=== PATIENT | female | born 1955 | race Caucasian/White ===

== ENCOUNTER 2017-12-26 21:27 | Emergency (ER) | payer OTHER ==
[2017-12-26 22:05] VITALS: BP 105/71
--- NOTE | 2017-12-26 22:09 | RAD ---
INDICATION: Posterior right forearm pain after trauma TECHNIQUE: 2 views of the right forearm were obtained. FINDINGS: The bones are normal alignment. Joint spaces appear maintained. No fracture is seen. IMPRESSION: No radiographic evidence of acute fracture or dislocation. If the patient's symptoms persist, follow-up imaging is recommended.
--- NOTE | 2017-12-26 22:47 | UC ---
Laceration HPI - HPI Summary HPI Summary: 62 y/o male presents to the urgent care c/o laceration to back of her head and RT forearm pain and Left elbow pain s/p falling backwards while moving some furniture around 2100 tonight. pt reports she was helping her move some heavy furniture and she slipped and fell backwards and hit her head against another furniture. Bleeding stopped after 15min of pressure. Pain is 2/ 10. She also has mild bruising in her forearm and left elbow. but can move them w/o any difficulty. Pt denies LOC, ALMEIDA, dizziness, abdominal pain SOB, chest pain, N/V/D . - History Of Current Complaint Chief Complaint: EDExtremityUpper Stated Complaint: HEAD LAC,WRIST INJURY Time Seen by Provider: 12/26/17 22:35 Hx Obtained From: Patient Laceration Location: Head - RT lateral side of scalp w/ laceration s/p fall Mechanism Of Injury: Sharp Trauma Onset/Duration: Lasting Hours Pain Intensity: 2 Pain Scale Used: 0-10 Numeric Aggravating Factors: Other: - touch - Allergies/Home Medications Allergies/Adverse Reactions: Allergies Allergy/AdvReac Type Severity Reaction Status Date / Time MS Bacitracin Allergy Rash Verified 12/26/17 22:06 [From Neosporin] MS Neomycin [From Neosporin] Allergy Rash Verified 12/26/17 22:06 MS Polymyxin B Allergy Rash Verified 12/26/17 22:06 [From Neosporin] Home Medications: Home Medications DULoxetine DR CAP* [Cymbalta CAP*] 30 mg PO DAILY 12/26/17 [History Confirmed ] PMH/Surg Hx/FS Hx/Imm Hx Previously Healthy: Yes Psychological History: Anxiety - Surgical History Surgical History: Yes Surgery Procedure, Year, and Place: CLOSED FRACTURE OF ARM- [facility]- 1962 - Family History Known Family History: Positive: None - Pt denies FMHX - Social History Occupation: Employed Full-time Lives: With Family Alcohol Use: Weekly Alcohol Amount: 4 to 6 drinks Substance Use Type: Excessive Caffeine Substance Use Comment - Amount & Last Used: 3+CUPS OF COFFEE PER DAY Smoking Status (MU): Never Smoked Tobacco Review of Systems Constitutional: Negative Skin: Bruising - RT fore arm and left elbow, Other - laceration of lateral side of scalp Eyes: Negative ENT: Negative Respiratory: Negative Cardiovascular: Negative Gastrointestinal: Negative Genitourinary: Negative Motor: Negative Neurovascular: Negative Musculoskeletal: Other: - RT forearm pain s/p fall Neurological: Negative Psychological: Negative Is Patient Immunocompromised?: No All Other Systems Reviewed And Are Negative: Yes Physical Exam Triage Information Reviewed: Yes Vital Signs: Initial Vital Signs Temp 97.6 F 12/26/17 21:57 Pulse 78 12/26/17 21:57 Resp 18 12/26/17 21:57 BP 105/71 12/26/17 21:57 Pulse Ox 99 12/26/17 21:57 - Additional Comments Vital Signs Reviewed: Yes General: well developed, well nourished female sitting in the examining table w/ o any apparent distress Eye Exam: Normal Eyes: Positive: Conjunctiva Clear - PERRLA, EOMI, fundi grossly normal ENT: Positive: Normal ENT inspection, Hearing grossly normal, Pharynx normal, TMs normal Neck: Positive: Supple, Nontender, No Lymphadenopathy Respiratory: Positive: Chest non-tender, Lungs clear, Normal breath sounds, No respiratory distress Cardiovascular: Positive: RRR, No Murmur, Pulses Normal, Brisk Capillary Refill Abdomen Description: Positive: Nontender, No Organomegaly, Soft. Negative: CVA Tenderness (R), CVA Tenderness (L) Bowel Sounds: Positive: Present Musculoskeletal: Positive: Strength Intact, ROM Intact, No Edema Neurological: Positive: Alert, Muscle Tone Normal Psychological Exam: Normal Skin: Positive:Lateral side of scalp w/ a superficial linear laceration about 2.0cm in size, bleeding stopped, mild tenderness on palpation, Mild swelling observed. RT forearm w/ beusing and swelling in the dorsal side, tender to palpation, FROM of RT wrist and RT elbow, pulses WNL, capillary refill brisk, sensation intact. LF elbow w/ midl bruising and swelling, FROM of LF Elbow . Mild tenderness to palpation. neurovascular intact. Laceration Repair - Laceration Repair 1 Description: Linear Laceration Size After Repair: Length (cm) - 2.0 Modified For Repair: No Type Injection: Local Anesthesia Used: 1.0% Lido - 1ml Cleansing Completed Via Routine Prep: Yes Irrigation With Pressure Irrigation Device: Yes Closure Material: Sascha - 5 Closure Method: Single Layer Suture Of: Skin, SQ Laceration Course/Dx - Course/Dx Course Of Treatment: 62 y/o male presents to the urgent care c/o laceration to back of her head and RT forearm pain and Left elbow pain s/p falling backwards while moving some furniture around 2100 tonight. pt reports she was helping her move some heavy furniture and she slipped and fell backwards and hit her head against another furniture. Bleeding stopped after 15min of pressure. Pain is 2/10. She also has mild bruising in her forearm and left elbow. but can move them w/o any difficulty. Pt denies LOC, ALMEIDA, dizziness, abdominal pain SOB, chest pain, N/V/D. Hx obtained. Pt w/ a superficial linear laceratio on the RT lateral side of scalp about 2.0cm in size, and RT fore arm and left elbow w/ contusion on examiantion. RT Forearm X-ray ordered: Impression : no evidence of Fracture or dislocation observed. LACERATION PROCEDURE NOTE: . Copious irrigation was done with saline by the nurse and the wound explored. There was no FB or deep structure injury noted. procedure was explained and consent obtained, Timeout performed. The wound was anesthetized with 1mL of 1 % lido with good anesthesia. Sterile drape and prep were done. wound closed w / 5 sascha. The length of the wound after closure was 2.0 cm. The Pt tolerated the procedure well without adverse effects. Neurovascular intact and FROM. Pt advised to f/u staple removal in 7 days and if any signs of infection develop to immediately return to the urgent care of PCP for further management and treatment. Pt understood and agreed and left the clinic ambulating A&Ox3. - Differential Dx - Laceration/Wound Differental Diagnoses: Abrasion, Fracture, Laceration, Puncture Wound, Tendon Laceration, Other - contusion Provider Diagnoses: 1- RT lateral side of Scalp laceration. 2-RT forearm and left elbow contusion Discharge - Discharge Plan Condition: Stable Disposition: HOME Patient Education Materials: Laceration (DC), Contusion in Adults (ED), Staple Care (ED) Referrals: Tushar Rose MD [Primary Care Provider] - 1 Week Additional Instructions: 1- Keep wound clean and dry. 2- F/u suture removal in 7 days days w/ your PCP or here at the urgent care. 3-Take Ibuprofen or Tylenol PO q6-8hrs prn for pain or swelling. 4- If you develop fever or redness around wound return to the Urgent care or your PCP for further treatment
[2017-12-26] MEDS ORDERED: Lidocaine 1% MPF* 2 ML VIAL INJ ONE (22:48)
[2017-12-27] MEDS ORDERED: Tetan/Diph/Pertus SYR(Tdap)* 0.5 ML SYR(BOOSTRIX) use SYR IM ONE ×2 (08:57→10:27)
--- NOTE | 2017-12-27 11:05 | PN ---
Progress Note - Progress Note Date of Service: 12/27/17 Note: I contacted Pt on her Home phone and advised her to return to the Urgent care for Tetanus vaccine since it was not given last night 12/26/2017, since her vaccine status could not be verified. Pt confirmed she will returned today to the urgent care for the vaccine. Catherine Álvarez PA-C
== END 2017-12-26 23:15 | disposition home or self-care (01) ==
LOC: UCEAST 21:27
DX: S01.01XA Laceration without foreign body of scalp, initial encounter (principal); S50.12XA Contusion of left forearm, initial encounter; S50.11XA Contusion of right forearm, initial encounter; S50.02XA Contusion of left elbow, initial encounter; W19.XXXA Unspecified fall, initial encounter; Y93.89 Activity, other specified; Y92.9 Unspecified place or not applicable; F41.9 Anxiety disorder, unspecified
CPT/HCPCS: 12001; 12031; 90715; 99211; G0463

== ENCOUNTER → 2017-12-27 08:45 | Emergency (ER) | payer BC | END | disposition home or self-care (01) | LOC: UCEAST 08:45 | DX: S01.91XD Laceration without foreign body of unspecified part of head, subsequent encounter (principal); X58.XXXD Exposure to other specified factors, subsequent encounter ==

== ENCOUNTER 2019-11-09 07:05 | Day surgery (SDC) | payer BC ==
--- NOTE | 2019-11-01 18:42 | HP ---
CC: Dr. Tushar Rose * ADMITTING HISTORY AND PHYSICAL: DATE OF ADMISSION: 11/09/19 ADMITTING DIAGNOSES: 1. Gross hematuria. 2. Multiple bladder tumors. 3. Left hydronephrosis. PLANNED PROCEDURE: Cystoscopy, transurethral resection of bladder tumors, left retrograde and left stent insertion. SURGEON: Dr. Esparza. HISTORY OF PRESENT ILLNESS: Richard Chahal is a 63-year-old nonsmoker who has had recurrent episodes of gross hematuria initially noticed in April 2019. She was evaluated in my office recently and a cystoscopy revealed 2 to 3 large papillary tumors involving the left side of the trigone of the urinary bladder, visibly these have an appearance of high-grade, but superficial transitional cell bladder cancer. A CT urogram revealed left hydronephrosis and she is now being brought in for further evaluation and management of the bladder tumors. PAST MEDICAL HISTORY: Unremarkable. Specifically, there is no history of diabetes mellitus or any other major systemic illness. PAST SURGICAL HISTORY: Significant for removal of a basal cell carcinoma from the left leg. MEDICATIONS ON ADMISSION: None. ALLERGIES: No known drug allergies. FAMILY HISTORY: Negative for transitional cell carcinoma. SOCIAL HISTORY: Smoking history: She is a nonsmoker. REVIEW OF SYSTEMS: She is otherwise in excellent health. She denies any chest pain or shortness of breath. PHYSICAL EXAMINATION GENERAL: Reveals a pleasant healthy-appearing middle-aged lady. VITAL SIGNS: Blood pressure is 118/74, pulse 89 per minute and regular, oxygen saturation 98% on room air, temperature 97. LUNGS: Clear bilaterally. CARDIOVASCULAR EXAM: Regular rate and rhythm. S1, S2. ABDOMEN: Soft without masses. IMPRESSION: A 63-year-old nonsmoker with recurrent episodes of gross hematuria and multiple bladder tumors involving the left side of the urinary bladder and causing left hydronephrosis. PLAN/RECOMMENDATIONS: Planned procedure is transurethral resection of bladder tumors, left retrograde, left stent insertion. [id number]/CPS #: [id number] [facility]
[~2019-11-09 07:05] MED LIST: Buffered Lidocaine 1% SYRIN* 1 ML/SYRINGE INTRADERM ONE; Dexamethasone IV* 4 MG/ML 1 ML (4 MG) IV SLOW PU ONE; Famotidine IV* 10 MG/ML 2 ML (20 mg) IV ONE; Lactated Ringers 1000 ML Bag* 1,000 ML IV SCH
[2019-11-09] MEDS ORDERED: cefTRIAXone(*) 2 GM ADDV.VIAL IVPB ONE (08:40)
[2019-11-09] MEDS ORDERED: Famotidine IV* 10 MG/ML 2 ML (20 mg) ONE (08:40)
[2019-11-09] MEDS ORDERED: Dexamethasone IV* 4 MG/ML 1 ML (4 MG) ONE (08:40)
[2019-11-09] MEDS ORDERED: Lidocaine 2% PF * 5 ML VIAL ONE (10:28)
[2019-11-09] MEDS ORDERED: fentaNYL* 50 MCG/ML 2 ML VIAL (100 MCG VIAL) ONE ×2 (10:28→12:06)
[2019-11-09] MEDS ORDERED: Propofol* 10 MG/ML 20 ML BTL ONE (10:28)
[2019-11-09] MEDS ORDERED: Midazolam* 1 MG/ML 5 ML VIAL (5 MG) ONE (10:28)
[2019-11-09] MEDS ORDERED: fentaNYL* 50 MCG/ML 2 ML VIAL (100 MCG VIAL) IV PRN (10:32)
[2019-11-09] MEDS ORDERED: Naloxone* 0.4 MG/ML 1 ML VIAL IV PRN (10:32)
[2019-11-09] MEDS ORDERED: DiMENhydriNATE IV* 50 MG/ML VIAL IV PUSH PRN (10:32)
[2019-11-09] MEDS ORDERED: oxyCODONE/Acetamin 5/325 MG* TAB PO PRN (10:32)
[2019-11-09] MEDS ORDERED: HYDROcodone/ACETAMIN 5-325 MG* 1 TAB PO PRN (10:32)
[2019-11-09] MEDS ORDERED: Rocuronium* 10 MG/ML VIAL ONE (10:43)
[2019-11-09] MEDS ORDERED: Phenylephrine 40 MCG/ML SYRINGE ONE (11:01)
[2019-11-09] MEDS ORDERED: Furosemide IV* 10 MG/ML 2 ML VIAL (20 MG) ONE (11:07)
[2019-11-09] MEDS ORDERED: Fluorescein 10% INJ* 100 MG/ML AMP ONE (11:09)
[2019-11-09] MEDS ORDERED: Iohexol 180 (CONTRAST) 10 ML SDV IV ONE (11:30)
[2019-11-09] MEDS ORDERED: Ondansetron INJ* 2 MG/ML VIAL ONE (11:30)
[2019-11-09] MEDS ORDERED: Sugammadex * 200 MG/2 ML VIAL IV PUSH ONE (11:40)
[2019-11-09] MEDS ORDERED: DiMENhydriNATE IV* 50 MG/ML VIAL ONE (13:11)
[2019-11-09 15:04] VITALS: BP 129/80
--- NOTE | 2019-11-10 00:15 | OP ---
CC: Dr. Rose; Dr. Esparza* OPERATIVE REPORT: DATE OF OPERATION: 11/09/19 - [facility] DATE OF : 53 SURGEON: Ronnie Esparza MD ANESTHESIOLOGIST: Casi Torres MD ANESTHESIA: General. PRE-OP DIAGNOSES: 1. Bladder tumor. 2. Left hydronephrosis. POST-OP DIAGNOSES: 1. Bladder tumor. 2. Left hydronephrosis. OPERATIVE PROCEDURE: 1. Transurethral resection of bladder tumors (5 to 6 cm aggregate). 2. Left retrograde and left stent insertion. INDICATIONS: Richard Chahal is a 63-year-old lady, who was evaluated for episodic gross hematuria and noted to have bladder tumors on the left side of the trigone of the urinary bladder. A CT urogram also revealed left hydronephrosis with no definite tumor noted within the ureter. BLOOD LOSS: Less than 25 cc. SPECIMEN: Bladder tumors. OPERATIVE FINDINGS: 1. Multiple bladder tumors, left side of trigone of urinary bladder ( appearance consistent with high-grade superficial transitional cell carcinoma). 2. Left hydronephrosis with proximal hydroureter. POSTOPERATIVE CONDITION: Stable. STENT USED: 8-[place]amo[place] Muir stent, left ureter. DESCRIPTION OF PROCEDURE: After induction of general endotracheal anesthesia, the patient was placed in dorsal lithotomy position. Sequential compression devices were in place and functioning. Initial cystoscopy revealed mild-to- moderate degree of urethral stenosis. The bladder was entered and examined. The left side of the trigone was involved with multiple papillary tumors with an appearance consistent with high-grade superficial transitional cell carcinoma. The left orifice could not be visualized. The right orifice was normal and other than the cluster of tumors in the left side of the trigone, the remainder of the bladder looked unremarkable. Using the resectoscope, transurethral resection of the bladder tumors was carried out. After the initial resection of the superficial part of the bladder tumor, I was expecting to be able to visualize the left orifice but still could not do it, so the resection was continued and after the deeper resection was finished, then I could finally visualize what I thought was the area of the left orifice. This was carefully intubated with 0.038 floppy- tipped guidewire and retrograde pyelogram revealed moderate degree of left hydronephrosis with hydroureter and tortuosity of the proximal left ureter. An 8-Samoan stent was introduced and positioned under fluoroscopy with good proximal and distal positioning obtained. My plan is to bring her back in 3 to 4 weeks, possibly to consider left ureteroscopy to make sure there is no tumor involvement of the distal ureter and also probably for a second- look bladder tumor resection depending on the pathology report. At the end of the procedure, hemostasis appeared satisfactory and there was no evidence of bladder perforation. A 22-Samoan Kinney was placed for temporary bladder drainage. The patient tolerated the procedure satisfactorily and was transferred back to the recovery area in stable condition. [id number]/[facility] #: [id number] MTDD
== END 2019-11-09 15:02 | disposition home or self-care (01) ==
LOC: OR 07:05
PROVIDERS: ATTEND Urology
DX: C67.0 Malignant neoplasm of trigone of bladder (principal); N13.1 Hydronephrosis with ureteral stricture, not elsewhere classified; R31.0 Gross hematuria; Z85.828 Personal history of other malignant neoplasm of skin; F32.9 Major depressive disorder, single episode, unspecified
CPT/HCPCS: 74420; 88305; A9270-GY; C2625; J0696; J1100; J1240; J1940; J2250; J2405; J2704; J3010

== ENCOUNTER 2019-11-28 07:20 | Day surgery (SDC) | payer BC ==
--- NOTE | 2019-11-20 09:44 | HP ---
CC: Dr. Tushar Rose; Dr. Esparza * ADMITTING HISTORY AND PHYSICAL: DATE OF ADMISSION: 11/28/19 PREOPERATIVE DIAGNOSES: 1. Bladder cancer. 2. Left hydronephrosis. PLANNED PROCEDURES: 1. Left retrograde. 2. Left ureteroscopy and stent replacement. 3. Transurethral resection of bladder tumor. SURGEON: Dr. Esparza. HISTORY OF PRESENT ILLNESS: Richard Chahal is a 64-year-old lady (nonsmoker), who had been evaluated for gross hematuria and noted to have bladder tumor. She was also noted to have left hydronephrosis. On 11/09/19, she underwent transurethral resection of bladder tumor and left stent insertion. Pathology revealed a high- grade invasive bladder cancer and she is now being brought in for further evaluation to see primarily whether there is any involvement of the left distal ureter by the extensive bladder tumor that was present in the left side of the trigone of the urinary bladder. PAST MEDICAL HISTORY: Significant for recently diagnosed bladder cancer. PAST SURGICAL HISTORY: Significant for: 1. Transurethral resection of bladder tumor and left stent on 11/09/19. 2. Removal of basal cell carcinoma from left leg. MEDICATIONS ON ADMISSION: None. ALLERGIES: No known drug allergies. FAMILY HISTORY: Negative for bladder cancer. SOCIAL HISTORY: She is a nonsmoker. REVIEW OF SYSTEMS: She is otherwise in excellent health. There is no history of any other major systemic illness. She denies any chest pain or shortness of breath. PHYSICAL EXAMINATION GENERAL: Reveals a pleasant, healthy-appearing, middle-aged lady. VITAL SIGNS: Blood pressure is 100/60, pulse 67 per minute, oxygen saturation 96%, temperature 97. LUNGS: Clear bilaterally. CARDIOVASCULAR: Regular rate and rhythm. S1 and S2. ABDOMEN: Soft with mild left flank tenderness. IMPRESSION: A 64-year-old nonsmoker with high-grade invasive bladder cancer and left hydronephrosis. PLAN: The plan is for further evaluation to see if there is any involvement of the left ureter by urothelial carcinoma. [id number]/[facility]PS #: [id number] MTDD
[~2019-11-28 07:20] MED LIST changes: -Dexamethasone IV* 4 MG/ML 1 ML (4 MG) IV SLOW PU ONE; -Famotidine IV* 10 MG/ML 2 ML (20 mg) IV ONE
[2019-11-28] MEDS ORDERED: cefTRIAXone(*) 2 GM ADDV.VIAL IVPB ONE (07:55)
[2019-11-28] MEDS ORDERED: Lidocaine 2% PF * 5 ML VIAL ONE (08:31)
[2019-11-28] MEDS ORDERED: Propofol* 10 MG/ML 20 ML BTL ONE ×2 (08:31→10:17)
[2019-11-28] MEDS ORDERED: Midazolam* 1 MG/ML 2 ML VIAL (2 MG) ONE (08:36)
[2019-11-28] MEDS ORDERED: fentaNYL* 50 MCG/ML 2 ML VIAL (100 MCG VIAL) ONE (08:36)
[2019-11-28] MEDS ORDERED: Iohexol 180 (CONTRAST) 10 ML SDV IV ONE ×2 (09:47→10:27)
[2019-11-28] MEDS ORDERED: Rocuronium* 10 MG/ML VIAL ONE (09:54)
[2019-11-28] MEDS ORDERED: Dexamethasone IV* 4 MG/ML 1 ML (4 MG) ONE (10:10)
[2019-11-28] MEDS ORDERED: Ondansetron INJ* 2 MG/ML VIAL ONE (10:10)
[2019-11-28] MEDS ORDERED: Metoclopramide IV* 5 MG/ML 2 ML VIAL ONE (10:10)
[2019-11-28] MEDS ORDERED: Ketorolac INJ* 30 MG/ML 1 ML VIAL ONE (10:10)
[2019-11-28] MEDS ORDERED: Phenylephrine 40 MCG/ML SYRINGE ONE (10:13)
[2019-11-28] MEDS ORDERED: Naloxone* 0.4 MG/ML 1 ML VIAL IV PRN (11:34)
[2019-11-28] MEDS ORDERED: Acetaminophen TAB* 325 MG PO PRN (11:34)
[2019-11-28] MEDS ORDERED: fentaNYL* 50 MCG/ML 2 ML VIAL (100 MCG VIAL) IV PRN (11:34)
[2019-11-28] MEDS ORDERED: DiMENhydriNATE IV* 50 MG/ML VIAL IV PUSH PRN (11:34)
[2019-11-28] MEDS ORDERED: oxyCODONE TAB* 5 MG TAB PO PRN (11:34)
[2019-11-28] MEDS ORDERED: Acetaminophen TAB* 325 MG ONE (11:37)
[2019-11-28 12:14] VITALS: BP 128/83
--- NOTE | 2019-11-28 22:09 | OP ---
CC: Dr. Rose * DATE OF OPERATION: 11/28/19 - [facility] DATE OF : 53 SURGEON: Ronnie Esparza MD ANESTHESIOLOGIST: Dr. Ruth. ANESTHESIA: General. PRE-OP DIAGNOSES: 1. Bladder cancer. 2. Left hydronephrosis. POST-OP DIAGNOSES: 1. Bladder cancer. 2. Left hydronephrosis. OPERATIVE PROCEDURE: 1. Cystoscopy, left stent removal, left retrograde pyelogram, left ureteroscopy , and left stent insertion. 2. Transurethral resection and fulguration of bladder tumor (5 to 6 cm). COMPLICATIONS: None. ESTIMATED BLOOD LOSS: Minimal. OPERATIVE FINDINGS: 1. Residual solid appearing tumor noted left side of trigone of the urinary bladder. 2. Mild fullness of left collecting system with no evidence of transitional cell tumor noted in the left ureter. POSTOPERATIVE CONDITION: Stable. STENT USED: 7-[place] stent, left ureter. INDICATIONS: Richard Chahal is a 64-year-old lady who had undergone transurethral resection for what on pathology turned out to be a muscle invasive tumor affecting the trigone on the left side of the bladder. At that time, she had been noted to have moderate left hydronephrosis and I had to resect the trigone on the left side in order to find the orifice and was eventually able to place a left stent. She is now being brought in for left ureteroscopy to rule out any tumor involvement of the distal left ureter. DESCRIPTION OF PROCEDURE: After induction of general anesthesia, the patient was placed in dorsal lithotomy position. Sequential compression devices were in place and functioning. Initial cystoscopy was performed and the previously placed stent was removed. Retrograde pyelogram revealed mild fullness of the left collecting system. A 6-[place] semi-rigid ureteroscope was introduced and advanced under direct vision. I was able to visualize the entire distal mid and proximal left ureter and there was no evidence of any tumor noted. On the initial retrograde pyelogram, I had the impression that she may have a partial duplication; however, on closer inspection I did not see any definite evidence of duplication and the lumen of the ureter appeared unremarkable. A 7-[place] stent was positioned under fluoroscopic monitoring. Next, attention was directed to the bladder tumor. While the bulk of the tumor had been resected on the initial procedure, there were small areas of residual tumor still noted and these were carefully resected down to muscles. On resection, it did appear to be a solid appearing tumor and I suspect she may require a cystectomy for definitive treatment. After completion of the resection, hemostasis was satisfactory and there was no evidence of bladder perforation. A 22-[place] Kinney was placed for temporary bladder drainage. The patient tolerated the procedure satisfactorily and was transferred back to the recovery area in stable condition. [id number]/CPS #: [id number] MTDD
== END 2019-11-28 12:29 | disposition home or self-care (01) ==
LOC: OR 07:20
PROVIDERS: ATTEND Urology
DX: C67.0 Malignant neoplasm of trigone of bladder (principal); N13.30 Unspecified hydronephrosis; R31.0 Gross hematuria; Z85.828 Personal history of other malignant neoplasm of skin; F32.9 Major depressive disorder, single episode, unspecified
CPT/HCPCS: 74420; 88305; A9270-GY; C1876; J0696; J1100; J1885; J2250; J2405; J2704; J2765; J3010